=== PATIENT | female | born 1965 | race Two or more races ===

== ENCOUNTER 2020-02-29 13:07 | Outpatient (REF) | payer OTHER, SELFPAY ==
[2020-03-05 02:16] LABS: HPV mRNA E6/E7 Detected (Not Detected)
== END 2020-02-29 13:08 | disposition home or self-care (01) ==
LOC: HO.LAB 13:07
PROVIDERS: Visit Provider Obstetrics & Gynecology
DX: Z01.419 Encounter for gynecological examination (general) (routine) without abnormal findings (principal)
CPT/HCPCS: 87624; 88141; 88142

== ENCOUNTER 2020-03-16 15:56 | Outpatient (REF) | payer OTHER, SELFPAY ==
--- NOTE | 2020-03-16 16:02 | MM_ITS ---
EXAMINATION: MM SCREENING DIGITAL BREAST TOMOSYNTHESIS, BILATERAL CLINICAL INFORMATION: Screening. Asymptomatic. Prior outside mammography from [place] currently unavailable. Age 54. No known family history breast cancer. The lifetime risk of breast cancer based on the Tyrer-Cuzick Model is 6%. COMPARISON: None. TECHNIQUE: Digital breast tomosynthesis is performed in both the craniocaudal and mediolateral oblique views along with computer-aided detection (CAD). Synthesized 2D images are generated from the tomosynthesis. FINDINGS: The breasts are heterogeneously dense, which may obscure small masses (ACR BI-RADS breast composition Category c). There are no significant masses, abnormal calcifications, or other abnormalities. The axilla and skin contours are unremarkable. MM/MM tomosynthesis screening BI IMPRESSION: No mammographic evidence of malignancy. ASSESSMENT: BI-RADS 1: Negative RECOMMENDATION: Routine annual mammography screening. This patient's information was entered into a reminder system with a target due date for their next mammogram.
== END 2020-03-16 15:57 | disposition home or self-care (01) ==
LOC: HO.MAMMO 15:56
PROVIDERS: Visit Provider Obstetrics & Gynecology
DX: Z12.31 Encounter for screening mammogram for malignant neoplasm of breast (principal)
CPT/HCPCS: 77063; 77067

== ENCOUNTER 2020-04-13 14:04 | Outpatient (REF) | payer OTHER, SELFPAY | END 2020-04-13 14:05 | disposition home or self-care (01) | LOC: HO.LAB 14:04 | PROVIDERS: PCP Internal Medicine; Visit Provider Obstetrics & Gynecology | DX: Z32.02 Encounter for pregnancy test, result negative (principal) | CPT/HCPCS: 57454; 81025; 88305 ==

== ENCOUNTER → 2020-04-25 11:16 | Outpatient (BNVA) | payer OTHER, SELFPAY | PROVIDERS: PCP Internal Medicine; Visit Provider Obstetrics & Gynecology | DX: Z76.89 Persons encountering health services in other specified circumstances (principal) ==

== ENCOUNTER 2020-05-11 15:21 | Outpatient (REF) | payer OTHER, SELFPAY | END 2020-05-11 15:22 | disposition home or self-care (01) | LOC: HO.LAB 15:21 | PROVIDERS: PCP Internal Medicine; Visit Provider Obstetrics & Gynecology | DX: N87.0 Mild cervical dysplasia (principal) | CPT/HCPCS: 57505; 88305; 99212 ==

== ENCOUNTER → 2020-05-25 15:37 | Outpatient (BNVA) | payer OTHER, SELFPAY | PROVIDERS: Visit Provider Obstetrics & Gynecology ==

== ENCOUNTER → 2020-05-26 14:20 | Outpatient (BNVA) | payer OTHER, SELFPAY | PROVIDERS: PCP Internal Medicine; Visit Provider Nurse Practitioner Family ==

== ENCOUNTER 2020-06-10 11:18 | Outpatient (REF) | payer OTHER, SELFPAY ==
[2020-06-10 12:15] LABS: Hematocrit 38.6 % (37-47); Hemoglobin 12.5 g/dl (12.0-16.0); Mean Corpuscular HGB Conc 32.4 g/dl (31.0-35.0); Mean Corpuscular Hemoglobin 29.8 pg (27.0-33.0); Mean Corpuscular Volume 91.9 fL (80-98); Mean Platelet Volume 9.7 fL (9.4-12.3); Platelet Count 315 X10*3/uL (160-400); Red Cell Distribution Width 12.1 % (11.0-16.0); White Blood Count 6.7 X10*3/uL (4.8-10.8)
[2020-06-10 12:26] LABS: Alanine Aminotransferase 20 U/L (0-31); Albumin Level 4.6 g/dL (3.5-5.0); Alkaline Phosphatase 70 U/L (39-117); Anion Gap 15 (12-20); Aspartate Amino Transferase 21 U/L (5-31); Bilirubin Total 0.4 mg/dL (0.0-1.0); Blood Urea Nitrogen 16 mg/dL (9-16); Calcium 9.7 mg/dL (8.4-10.2); Carbon Dioxide 26 mmol/L (22-29); Chloride 103 mmol/L (96-108); Estimated Glomerular Filt Rate > 60; Glucose Random 97 mg/dL (60-115); Potassium 4.2 mmol/L (3.3-5.1); Sodium 140 mmol/L (135-145); Total Protein 7.6 g/dL (6.5-8.0)
== END 2020-06-10 11:19 | disposition home or self-care (01) ==
LOC: HO.LAB 11:18
PROVIDERS: PCP Internal Medicine; Visit Provider Nurse Practitioner Family
DX: Z12.11 Encounter for screening for malignant neoplasm of colon (principal)
CPT/HCPCS: 36415; 80053; 85027

== ENCOUNTER → 2020-06-23 13:19 | Outpatient (BNVA) | payer OTHER, SELFPAY | PROVIDERS: PCP Internal Medicine; Visit Provider Nurse Practitioner Family ==

== ENCOUNTER 2020-07-26 08:37 | Day surgery (SDC) | payer OTHER, SELFPAY ==
[2020-07-19 15:00] VITALS: BMI 27.1
--- NOTE | 2020-07-25 09:38 | HO.ANESPROP2 ---
Documented by User: Lizet Ibrahim 07/25/20 09:39 HPI - Anesthesia Eval Consult details Narrative: 54yo F for Colonoscopy PMFSH Active Problems Active Problems: All Active Problems (Updated 05/25/20 @ 15:42 by Efrain Garces MD) AKIKO I (cervical intraepithelial neoplasia I) (Acute) Lumbar degenerative disc disease (Acute) Essential hypertension (Acute) Past Medical History Medical History Essential hypertension Lumbar degenerative disc disease Family History Family History Father Family history of high blood pressure Hx of heart disorder Hx of ulcer disease Hx of colonic polyps Mother Family history of high blood pressure Sister Family history of high blood pressure Brother Family history of high blood pressure Hx of heart disorder Surgical History Surgical History H/O: knee surgery History of section Social History Social History Household Members: Children Alcohol intake: never Smoking Status: Never smoker Current occupational status: unemployed Sexual orientation: Straight/Heterosexual Gender identity: female Meds Allergies Allergy/AdvReac Type Severity Reaction Status Date / Time tramadol Allergy Unknown High blood Verified 07/19/20 14:59 pressure Exam Exam Date and Time: July 25, 2020 0938 Height,Weight and Vital Signs: Height 5 ft Weight 63.049 kg Pertinent Lab Results Pertinent Lab Results: Laboratory Tests 06/10/20 06/10/20 11:40 11:40 WBC 6.7 Hgb 12.5 Hct 38.6 Plt Count 315 Sodium 140 Potassium 4.2 Chloride 103 Carbon Dioxide 26 BUN 16 Creatinine 0.83 Assessment and Plan Assessment Anesthesia Assessment: Chart Reviewed Documented by User: Manuel Bhakta 07/26/20 08:36 PMFSH Past Medical History Medical History Essential hypertension Lumbar degenerative disc disease Family History Family History Father Family history of high blood pressure Hx of heart disorder Hx of ulcer disease Hx of colonic polyps Mother Family history of high blood pressure Sister Family history of high blood pressure Brother Family history of high blood pressure Hx of heart disorder Surgical History Surgical History H/O: knee surgery History of section Social History Social History Household Members: Children Alcohol intake: never Smoking Status: Never smoker Current occupational status: unemployed Sexual orientation: Straight/Heterosexual Gender identity: female Meds Allergies Allergy/AdvReac Type Severity Reaction Status Date / Time tramadol Allergy Unknown High blood Verified 07/19/20 14:59 pressure Exam Airway Mallampati Class: II TM Dist: >3cm Neck ROM: Full Loose/Missing/Broken Teeth: Yes (Poor dentition) Heart: [id number] Lungs: cta b/l Assessment and Plan Assessment Anesthesia Assessment: Anesthesia Plan Discussed, PAT Visit and Chart Reviewed Final Anesthetic Review NPO: Yes ASA Class: II Final Preanesthetic Review: No Changes in Pt Med Stat, Meds/Allgs Chart Reviewed, Consent Obtained/Reviewed and Anes Risks/Benef Reviewed Patient Risk: Low Procedure Risk: Low Assessment/Block/Sedation in SS: Assess/Block/Sedation-SS Anesthetic Plan Anesthetic Plan: MAC: and Agree w/ Assess. and Plan Disposition: Standard PACU
[2020-07-26 09:20] VITALS: BP 133/78; PULSE 104; RESP 16; TEMP 36.6; O2SAT 98
[2020-07-26] MEDS: Lactated Ringers 1,000 ML 100 ML IVCONT (09:25)
--- NOTE | 2020-07-26 09:59 | P.HPSUR_ITS ---
Pre-Procedural Eval Section B Chief Complaint: screening Details of Present Illness: Colon cancer screening--Father with polyps Clinically no changes from June visit Relevant Family History (Specify if Yes): Yes Relevant Social History: None Present Medications: see Short Stay Collaborative assessment Medical History: Significant History (Hypertension) History of Previous Operations: Relevant previous surgery/procedure and date(s) (Csection) Allergies: Allergies Allergy/AdvReac Type Severity Reaction Status Date / Time ketorolac Allergy Unknown Unknown Verified 07/26/20 09:18 tramadol Allergy Unknown High blood Verified 07/19/20 14:59 pressure Review of Systems Sugical H&P ROS: Negative: Constitution, Respiratory, Gastrointestinal and Endocrine and Yes, Specify: Cardiovascular (Hypertension) and Musculoskeletal ( l/s back pain) Exam Surgical H&P Exam: Normal: HEENT, Normal: Heart, Normal: Lungs, Normal: Extremities, Normal: Abdomen and Normal: Skin Plan I have reviewed the history and physical and performed a pertinent physical examination on my patient. No changes have occurred unless specified. yes
[2020-07-26 10:28] VITALS: BP 96/60; PULSE 84; RESP 20; TEMP 37; O2SAT 100
--- NOTE | 2020-07-26 10:30 | P.BOP_ITS ---
Brief Operative Note Date of Service: 07/26/20 Pre-op diagnosis: +FAMILY HX, COLON CANCER SCREENING Post-op diagnosis: other (COLON POLYP, DIVERTICULOSIS, 1+ INTERNAL HEMORRHOIDS) Procedure: COLONOSCOPY WITH EXCISIONAL POLYPECTOMY Implants: NONE Surgeon: Graciela Degroot MD Anesthesia: MAC (CUFF,MACHINE PLUG SHAPER) Estimated blood loss (mL): 5 Pathology: other (POLYP-DESCENDING COLON) Condition: stable Disposition: PACU
[2020-07-26 10:41] VITALS: BP 112/70; PULSE 91; RESP 20; O2SAT 98
[2020-07-26 10:50] VITALS: TEMP 36.9
--- NOTE | 2020-07-26 16:50 | W.PM.OPN ---
Operative Note Operative Note Date of Service: 07/26/20 Narrative: Pre-op diagnosis: +FAMILY HX, COLON CANCER SCREENING Post-op diagnosis: other (COLON POLYP, DIVERTICULOSIS, 1+ INTERNAL HEMORRHOIDS) Procedure: COLONOSCOPY WITH EXCISIONAL POLYPECTOMY Implants: NONE Surgeon: Graciela Degroot MD Anesthesia: MAC (CUFF,FORMULATION CHEMIST) FINDINGS: FREDY: SPHINCTER TONE ADEQUATE Adult slim colonoscope was introduced there was angulation at the rectosigmoid/sigmoid colon-area was slow progress. There were also scattered diverticuli present. In transition area of sigmoid and descending colon a 2- 3mm polyp was seen and removed excisionally with cold bx forceps. Eventually scope moved through descending to mid transverse colon. In this area gentle extrinsic abdominal pressure was applied and scope entered ascending colon and cecum. Appendiceal orifice was seen. Ileocecal valve was seen. Prep was good. Slow withdrawal of the scope, good rotational views showed no additional lesions. ARV was clear. Estimated blood loss (mL): 5 Pathology: other (POLYP-DESCENDING COLON) Condition: stable Disposition: PACU PLAN: REPEAT COLON CANCER SCREENING IN 5 YEARS.
== END 2020-07-26 11:25 | disposition home or self-care (01) ==
PROVIDERS: PCP Internal Medicine; Visit Provider Internal Medicine Gastroenterology
PROC: 0DJD8ZZ Inspection of Lower Intestinal Tract, Via Natural or Artificial Opening Endoscopic (ICD-10-PCS; CPT 45378; principal; 2020-07-26 09:50)
DX: Z12.11 Encounter for screening for malignant neoplasm of colon (principal); Z80.0 Family history of malignant neoplasm of digestive organs; D12.5 Benign neoplasm of sigmoid colon; K57.30 Diverticulosis of large intestine without perforation or abscess without bleeding; K64.8 Other hemorrhoids; K59.00 Constipation, unspecified; I10 Essential (primary) hypertension; Z79.899 Other long term (current) drug therapy; Z88.8 Allergy status to other drugs, medicaments and biological substances
CPT/HCPCS: 45380; 88305

== ENCOUNTER → 2020-12-20 13:59 | Outpatient (BNVA) | payer OTHER, SELFPAY | PROVIDERS: PCP Internal Medicine; Visit Provider Nurse Practitioner Family ==

== ENCOUNTER 2021-02-07 10:00 | Outpatient (REF) | payer OTHER, SELFPAY ==
[2021-02-07 11:42] LABS: Alanine Aminotransferase 18 U/L (0-31); Albumin Level 4.7 g/dL (3.5-5.0); Alkaline Phosphatase 68 U/L (39-117); Anion Gap 13 (12-20); Aspartate Amino Transferase 18 U/L (5-31); Bilirubin Total 0.4 mg/dL (0.0-1.0); Blood Urea Nitrogen 16 mg/dL (9-16); Carbon Dioxide 27 mmol/L (22-29); Chloride 105 mmol/L (96-108); Cholesterol 199 mg/dL; Estimated Glomerular Filt Rate > 60; Glucose Fasting 102 mg/dL (60-99); HDL Cholesterol 53 mg/dL; LDL Cholesterol Calculated 136 mg/dl; Potassium 4.5 mmol/L (3.3-5.1); Sodium 140 mmol/L (135-145); Total Protein 7.6 g/dL (6.5-8.0); Triglycerides 51 mg/dL
== END 2021-02-07 10:01 | disposition home or self-care (01) ==
LOC: HO.LAB 10:00
PROVIDERS: PCP Internal Medicine; Visit Provider Internal Medicine
DX: I10 Essential (primary) hypertension (principal); E78.5 Hyperlipidemia, unspecified
CPT/HCPCS: 36415; 80053; 80061